=== PATIENT | female | born 1995 | race Two or more races ===

== ENCOUNTER 2018-01-22 21:24 | Emergency (ER) | payer MEDICAID, OTHER ==
[~2018-01-22] VITALS: Ht 157.5 cm; Wt 80.0 kg
[~2018-01-22 21:24] MED LIST: DIPH25CA83 PO; METH4TAB3 PO; NO HOME MEDS
[2018-01-22 21:26] VITALS: BP 151/103
[2018-01-22] MEDS ORDERED: PENI500T2 PO (22:10)
== END 2018-01-22 22:15 | disposition home or self-care (01) ==
LOC: ER 21:24
DX: K04.7 Periapical abscess without sinus (principal); Z79.899 Other long term (current) drug therapy
CPT/HCPCS: 99283

== ENCOUNTER 2019-04-02 18:52 | Emergency (ER) | payer SELFPAY ==
[~2019-04-02] VITALS: Ht 157.5 cm; Wt 78.8 kg
[~2019-04-02 18:52] MED LIST changes: -DIPH25CA83 PO; -METH4TAB3 PO
[2019-04-02 19:28] LABS: URINE HCG NEGATIVE (NEG)
[2019-04-02 19:32] LABS: CLARITY,URINE CLEAR (Clear); COLOR,URINE YELLOW (Yellow); GLUCOSE, URINE >=1000 mg/dl (Neg); KETONES,URINE NEGATIVE (Neg); LEUKOCYTE ESTERASE ,URINE NEGATIVE (Neg); NITRITES, URINE NEGATIVE (Neg); OCCULT BLOOD,URINE NEGATIVE (Neg); PH,URINE 5.5 (4.8-8.0); PROTEIN,URINE NEGATIVE (Neg); UROBILINOGEN,URINE 0.2 E.U/dL (0.2-1.0)
[2019-04-02 19:41] LABS: UA COLLECTION TYPE CLN CATCH MIDSTREAM
[2019-04-02 19:43] LABS: BACTERIA,URINE FEW /HPF (Neg); MUCUS STRANDS NONE SEEN /LPF (Neg); RBC,URINE NONE SEEN /HPF (0-2); SQUAMOUS EPITHELIAL CELL,UR MODERATE /LPF (FEW); WBC,URINE 0-4 /HPF (0-4); YEAST FEW /HPF (NEGATIVE)
[2019-04-02 19:45] LABS: BASOPHILS # (AUTO) 0.1 X10'3 (0-0.2); BASOPHILS % (AUTO) 0.5 % (0-1); EOSINOPHILS # (AUTO) 0.1 X10'3 (0-0.9); EOSINOPHILS % (AUTO) 1.3 % (0-6); HEMATOCRIT 39.7 % (35.0-45.0); HEMOGLOBIN 13.6 g/dl (12.0-16.0); LYMPHOCYTES # (AUTO) 3.7 X10'3 (1.1-4.8); LYMPHOCYTES % (AUTO) 38.3 % (21-51); MEAN CORPUSCULAR HEMOGLOBIN 29.4 PG (27.0-31.0); MEAN CORPUSCULAR HGB CONC 34.2 g/dL (33.0-36.5); MEAN CORPUSCULAR VOLUME 85.9 FL (78-98); MEAN PLATELET VOLUME 7.8 FL (7.4-10.4); MONOCYTES # (AUTO) 0.6 X10'3 (0-0.9); MONOCYTES % (AUTO) 6.2 % (2-12); NEUTROPHILS # (AUTO) 5.2 X10'3 (1.8-7.7); NEUTROPHILS % (AUTO) 53.7 % (42-75); PLATELET COUNT 351 X10'3 (140-440); RED BLOOD COUNT 4.62 X10'6 (4.20-5.60); RED CELL DISTRIBUTION WIDTH 13.8 % (11.5-14.5); WHITE BLOOD COUNT 9.7 X10'3 (4.5-11.0)
[2019-04-02 20:01] LABS: ALBUMIN 3.3 G/DL (3.4-5.0); ANION GAP 17 (8-16); BILIRUBIN,TOTAL 0.3 MG/DL (0.1-1.0); BLOOD UREA NITROGEN 11 MG/DL (7-18); BUN/CREATININE RATIO 12.6 (6.6-38.0); CALCIUM 9.2 MG/DL (8.5-10.1); CHLORIDE 98 MMOL/L (99-107); CREATININE 0.87 MG/DL (0.40-0.90); POTASSIUM 3.8 MMOL/L (3.5-5.1); SODIUM 135 MMOL/L (135-145); TOTAL PROTEIN 8.2 G/DL (6.4-8.2); eGFR 81 ML/MIN
[2019-04-02 20:02] LABS: ALANINE AMINOTRANSFERASE 35 U/L (12-78); ALBUMIN/GLOBULIN RATIO 0.7 (1.1-1.5); ALKALINE PHOSPHATASE 72 IU/L (46-116); ASPARTATE AMINO TRANSFERASE 17 U/L (10-37)
[2019-04-02 20:05] LABS: GLUCOSE 532 MG/DL (70-104)
--- NOTE | 2019-04-02 20:10 | NUR ---
I spoke with pt re her BG and told her I'd like to start an IV on her in anticipation of treatment. She refused and stated she does not want an IV and will wait until a doctor sees her
--- NOTE | 2019-04-02 20:51 | NUR ---
checked in on patient, no needs at this time. she reports having a normal BM, the first in several days, and feeling much more comfortable. She reports abd pain decreased from 10/10 to 4/10
--- NOTE | 2019-04-02 21:33 | NUR ---
checked in with pt, she is sitting up in bed. she reoprts she is still feeling much better since she had a BM. she reports she feels well enough to go home, but will wait to see an MD
[2019-04-02] MEDS ORDERED: normal saline 1000ML IV soln IVB ONE (22:00)
--- NOTE | 2019-04-02 22:02 | NUR ---
pt stated that she adamantly does not want an IV or the fluids that were ordered. I advised her that her BG is considered "critically" high, but she still refuses and IV and fluids. she sates she is not afraid of needles, she would just prefer to deal with her pcp for her bg issues
--- NOTE | 2019-04-02 22:09 | NUR ---
notified that pt is refusing IV and fluids
[2019-04-02 22:22] VITALS: BP 137/85
== END 2019-04-02 22:24 | disposition home or self-care (01) ==
LOC: ER 18:52
DX: E11.65 Type 2 diabetes mellitus with hyperglycemia (principal); K59.00 Constipation, unspecified; R11.2 Nausea with vomiting, unspecified; R79.1 Abnormal coagulation profile
CPT/HCPCS: 36415; 80053; 81001; 81025; 85025; 85610; 87077; 87088; 99283

== ENCOUNTER 2023-02-28 20:19 | Emergency (ER) | payer OTHER ==
[~2023-02-28] VITALS: Ht 157.5 cm; Wt 76.0 kg
[2023-02-28] MEDS ORDERED: ketorolac trometh inj. 60 MG/2 ML VIAL IM ONE (23:05)
[2023-02-28 23:58] VITALS: BP 171/119
[2023-02-28] MEDS ORDERED: IBUP-1985 PO (23:59)
[2023-02-28] MEDS ORDERED: CYCL-1 PO (23:59)
== END 2023-03-01 00:11 | disposition home or self-care (01) ==
LOC: ER 20:20
DX: M25.562 Pain in left knee (principal); M54.50 Low back pain, unspecified; E11.9 Type 2 diabetes mellitus without complications
CPT/HCPCS: 73564; 96372; 99284; J1885

== ENCOUNTER 2023-05-21 08:46 | Emergency (ER) | payer MEDICAID, OTHER ==
[~2023-05-21] VITALS: Ht 157.5 cm; Wt 76.8 kg
[~2023-05-21 08:46] MED LIST changes: +CYCL-1 PO; +IBUP-1985 PO
[2023-05-21 09:01] VITALS: BP 159/109; PULSE 108; TEMP 98.6; O2SAT 100
[2023-05-21] MEDS ORDERED: ketorolac tromethamine 15mg/ml inj. IM ONE (11:10)
[2023-05-21] MEDS ORDERED: orphenadrine citrate 60mg/2ml inj. IM ONE (11:10)
[2023-05-21] MEDS ORDERED: IBUP-1984 PO (11:11)
[2023-05-21] MEDS ORDERED: CYCL-1 PO (11:11)
[2023-05-21] MEDS ORDERED: PRED20TA PO (11:11)
[2023-05-21 11:54] VITALS: RESP 16
== END 2023-05-21 12:03 | disposition home or self-care (01) ==
LOC: ER 08:46
DX: S39.012A Strain of muscle, fascia and tendon of lower back, initial encounter (principal); E11.9 Type 2 diabetes mellitus without complications; Z79.899 Other long term (current) drug therapy; Z79.1 Long term (current) use of non-steroidal anti-inflammatories (NSAID); W19.XXXA Unspecified fall, initial encounter; Y93.89 Activity, other specified; Y92.89 Other specified places as the place of occurrence of the external cause; Y99.8 Other external cause status
CPT/HCPCS: 96372; 99283; J1885

== ENCOUNTER 2024-03-16 15:09 | Outpatient (CLI) | payer MEDICAID | END 2024-03-16 23:59 | disposition home or self-care (01) | LOC: MRI 15:09 | PROVIDERS: ATTEND Chiropractor | DX: M51.47 Schmorl's nodes, lumbosacral region (principal); M79.605 Pain in left leg; M43.8X6 Other specified deforming dorsopathies, lumbar region; M54.50 Low back pain, unspecified | CPT/HCPCS: 72148 ==

== ENCOUNTER 2025-05-03 19:56 | Emergency (ER) | payer MEDICAID ==
[~2025-05-03] VITALS: Ht 172.7 cm; Wt 85.0 kg
[~2025-05-03 19:56] MED LIST changes: -IBUP-1985 PO; +IBUP600T52 PO
[2025-05-03 20:15] VITALS: BP 189/100; PULSE 88; TEMP 98.2; O2SAT 98
[2025-05-03 20:21] VITALS: RESP 18
--- NOTE | 2025-05-03 20:36 | RADIOLOGY REPORT ---
EXAM: DI CHEST,SINGLE VIEW HISTORY: RULE OUT tb POSITIVE SKIN TEST AFTER 72 HRS FOR WORK TECHNIQUE: 1 view of the chest COMPARISON: None FINDINGS/IMPRESSION: LUNGS: No pleural effusion, consolidation, or pneumothorax. No radiographic evidence of tuberculosis. No cavitary lesion. MEDIASTINUM: Unremarkable BONES: No acute osseous abnormality OTHER: None
--- NOTE | 2025-05-03 21:58 | Physician Documentation ---
History of Present Illness ~ Chief Complaint: Medical Clearance Stated Complaint: TUBERCULOSIS Time Seen by MD: 21:48 Primary Medical Doctor: None HPI Patient presents to the emergency room for evaluation of positive PPD skin test. She has no symptoms of weight loss night sweats cough cold congestion. No known positive exposures. Tetanus within 5 years?: Yes Medication Reconciliation Allergies: Coded Allergies: No Known Allergies (Unverified , 06/24/12) Scheduled Cyclobenzaprine* (Cyclobenzaprine*), 1 TAB PO HS Cyclobenzaprine* (Cyclobenzaprine*), 1 TAB PO Q8H Ibuprofen (Ibuprofen), 1 TAB PO Q6H Miscellaneous Medications Home Med List (No Home Medications), (Reported) Past Medical History Past Medical History: Diabetes Past Surgical History: no surgical history Alcohol Use: None Drug Use: none Lives In: Home Occupation: student Review of Systems ROS All review of systems negative except as per HPI Physical Exam Vital Signs: Temperature: 98.2, Source: Temporal, Heart Rate: 88, Respiratory Rate: 18, BP: 189/100, Pulse Oximetry: 98, Weight: 85.000 Oxygen Flow Rate: 0 Physical Exam General: Patient is awake, alert, oriented x4 in no acute distress and well appearing.~ Head: Normocephalic and atraumatic. Eyes: Conjunctival normal. EOMI. PERRL. ENT: Mucous membranes moist. Neck: Supple, trachea is midline. Chest: Clear to auscultation bilaterally without rales, rhonchi, or wheezes. There is no accessory muscle use or retractions. Cardiac: RRR without murmurs, gallops, or rubs. Abd: Soft, nondistended, nontender, with normoactive bowel sounds. No guarding, rebound, or rigidity. Progress Results/Orders Results/Orders Orders - JUAN LOVE MD Chest,Single View (05/03/25 20:24) Completed Orders - JUAN LOVE MD Chest,Single View (05/03/25 20:24) Vital Signs 05/03/25 05/03/25 20:15 20:21 Temp 98.2 Pulse 88 Resp 18 18 B/P (MAP) 189/100 Pulse Ox 98 O2 Flow Rate 0 EKG/XRAY/CT/US/VASC/MRI Chest X-Ray : Additional Comments Exam: CHEST,SINGLE VIEW EXAM: DI CHEST,SINGLE VIEW HISTORY: RULE OUT tb POSITIVE SKIN TEST AFTER 72 HRS FOR WORK TECHNIQUE: 1 view of the chest COMPARISON: None FINDINGS/IMPRESSION: LUNGS: No pleural effusion, consolidation, or pneumothorax. No radiographic evidence of tuberculosis. No cavitary lesion. MEDIASTINUM: Unremarkable BONES: No acute osseous abnormality OTHER: None Medical Decision Making Findings Patient presented to the emergency room for evaluation of positive PPD. patient is asymptomatic with a clear chest x-ray. The need to follow up with her doctor discussed. Departure Disposition: HOME / SELF CARE / HOMELESS Impression: Primary Impression: Positive PPD Condition: Fair Discharge Instructions: Medical Screening Exam Additional Instructions: Chest x-ray is reassuring and patient is asymptomatic and she is not contagious for tuberculosis. Follow up with primary care doctor for any additional testing. Referrals: NO PRIMARY CARE PROVIDER (PCP) Education Educated: Patient Educated regarding: diagnosis, treatment, need for follow up Signature Scribe Signature: No scribe Attestation: The note accurately reflects work and decisions made by me.Juan Love MD 05/03/25 21:58 JUAN LOVE MD May 03, 2025 21:58
== END 2025-05-03 22:04 | disposition home or self-care (01) ==
LOC: ER 19:56
DX: R76.11 Nonspecific reaction to tuberculin skin test without active tuberculosis (principal); E11.9 Type 2 diabetes mellitus without complications
CPT/HCPCS: 71045; 99283